=== PATIENT | female | born 1930 | race Caucasian/White ===

== ENCOUNTER → 2016-12-26 | Outpatient (CLI) | payer OTHER ==
[~2016-12-26] MED LIST: ARM1 PO; DTRSR4 PO; GLC500 PO; IBUP600T44 PO; INDA1TAB3 PO; LISI-461 PO; NITR1CAP32 PO; OXYC-57 PO; [UNRECOGNIZED DRUG - CODE]
[2016-12-26 14:04] LABS: ESTIMATED AVERAGE GLUCOSE 146 mg/dl; HA1C FLAG Normal (Normal)
== END | disposition home or self-care (01) ==
LOC: C.LABMFLN 11:14
PROVIDERS: ATTEND Family Medicine
DX: E11.9 Type 2 diabetes mellitus without complications (principal)

== ENCOUNTER → 2017-08-01 | Outpatient (CLI) | payer OTHER ==
--- NOTE | 2017-08-01 15:52 | MAMMOGRAPHY REPORT ---
BILATERAL DIGITAL SCREENING MAMMOGRAM TOMOSYNTHESIS WITH CAD: 08/01/2017 CLINICAL HISTORY: Asymptomatic. Personal history of breast cancer. TECHNIQUE: Breast tomosynthesis in addition to standard 2D mammography was performed. Current study was also evaluated with a Computer Aided Detection (CAD) system. COMPARISON: Comparison is made to exams dated: 07/09/2012 mammogram, 07/18/2011 mammogram, 07/08/2011 m ammogram, 07/05/2010 mammogram - [facility], 07/04/2009, and 09/09/2007. BREAST COMPOSITION: There are scattered areas of fibroglandular density in both breasts. FINDINGS: No suspicious masses, calcifications, or areas of architectural distortion are noted in ei ther breast. There has been no significant interval change compared to prior exams. There are stable postsurgical changes in the left upper outer quadrant from prior lumpectomy, including stable densit y and architectural distortion at the lumpectomy bed. A linear scar marker denotes a scar on the lef t upper outer breast. Scattered bilateral benign-appearing calcifications are not significantly silva ged. IMPRESSION: ACR BI-RADS CATEGORY 2: BENIGN There is no mammographic evidence of malignancy. A 1 year screening mammogram is recommended. The pa tient will receive written notification of the results. Approximately 10% of breast cancers are not detected with mammography. A negative mammographic report should not delay biopsy if a clinically suggestive mass is present. Jennifer Ng M.D. /:08/01/2017 14:48:41 [employer]: Angle MARTIN)([place]), [facility] letter sent: Normal 1/2 BI-RADS Code: ACR BI-RADS Category 2: Benign
== END | disposition home or self-care (01) ==
LOC: C.MAMM 09:58
PROVIDERS: ATTEND Family Medicine
DX: Z12.31 Encounter for screening mammogram for malignant neoplasm of breast (principal); Z85.3 Personal history of malignant neoplasm of breast

== ENCOUNTER → 2017-09-19 | Outpatient (CLI) | payer OTHER ==
[2017-09-19 12:45] LABS: BASO % 0.4 %; BASO ABS # 0.03 K/uL (0-0.2); COMPLETE YES; EOS % 3.1 %; HEMATOCRIT 43.5 % (37-47); IG% 0.3 %; LYMPH ABS # 1.69 K/uL (1.2-3.4); MEAN CELL VOLUME 95.2 fL (80-100); MEAN CORPUSCULAR HEMOGLOBIN 31.7 pg (25-34); MEAN CORPUSCULAR HGB CONC 33.3 g/dl (32-36); MEAN PLATELET VOLUME 9.3 fL (7.4-10.4); NEUT % 64.2 %; PLATELET COUNT 212 K/uL (130-400); RED BLOOD COUNT 4.57 M/uL (4.2-5.4); WHITE BLOOD COUNT 6.75 K/uL (4.8-10.8)
[2017-09-19 13:14] LABS: ESTIMATED AVERAGE GLUCOSE 146 mg/dl; HA1C FLAG Normal (Normal)
[2017-09-19 13:24] LABS: ALT/SGPT 30 U/L (12-78); AST/SGOT 19 U/L (15-37); BLOOD UREA NITROGEN 14 mg/dl (7-18); BUN/CREATININE RATIO 15.7 (10-20); CALCIUM 8.6 mg/dl (8.5-10.1); CARBON DIOXIDE 29 mmol/L (21-32); CHLORIDE 100 mmol/L (98-107); CHOLESTEROL 153 mg/dl (0-200); GLUCOSE 114 mg/dl (70-99); POTASSIUM 4.1 mmol/L (3.5-5.1); SODIUM 134 mmol/L (136-145); TRIGLYCERIDES 157 mg/dl (0-150); VERY LOW DENSITY LIPOPROT CALC 31 mg/dl
[2017-09-19 13:34] LABS: ALB/GLOB RATIO 0.9 (0.9-2); ALKALINE PHOSPHATASE 94 U/L (45-117); CHOLESTEROL/HDL RATIO 3.8; HDL CHOLESTEROL 40 mg/dl; LDL CHOLESTEROL CALCULATED 82 mg/dl
[2017-09-19 13:34] LABS: CREATININE RANDOM URINE 88.6 mg/dl
[2017-09-19 13:45] LABS: RATIO 8.2 mcg/mg (0-30.0)
== END | disposition home or self-care (01) ==
LOC: C.LABMFLN 10:17
PROVIDERS: ATTEND Physician Assistant
DX: I10 Essential (primary) hypertension (principal); E11.9 Type 2 diabetes mellitus without complications; E78.5 Hyperlipidemia, unspecified; E53.8 Deficiency of other specified B group vitamins; M54.5 Low back pain